=== PATIENT | male | born 1980 | race Caucasian/White ===

== ENCOUNTER 2022-04-30 20:00 | Outpatient (CLI) | payer OTHER, SELFPAY | END 2022-04-30 20:01 | disposition home or self-care (01) | LOC: SLEEP 05-01 06:45 | PROVIDERS: Visit Provider Nurse Practitioner | DX: R06.83 Snoring (principal); R53.83 Other fatigue; R41.3 Other amnesia; G47.33 Obstructive sleep apnea (adult) (pediatric) | CPT/HCPCS: 95810 ==

== ENCOUNTER 2022-11-01 06:12 | Outpatient (CLI) | payer OTHER, SELFPAY ==
--- NOTE | 2022-11-01 06:33 | CTR_ITS ---
PROCEDURE INFORMATION: Exam: CT Chest With Contrast; Diagnostic Exam date and time: 11/01/2022 6:52 AM Age: 42 years old Clinical indication: Abnormal findings; Abnormal radiologic exam of lung or chest; Additional info: Right upper lobe scarring TECHNIQUE: Imaging protocol: Diagnostic computed tomography of the chest with contrast. Radiation optimization: All CT scans at this facility use at least one of these dose optimization techniques: automated exposure control; mA and/or kV adjustment per patient size (includes targeted exams where dose is matched to clinical indication); or iterative reconstruction. Contrast material: OMNI 350; Contrast volume: 100 ml; Contrast route: INTRAVENOUS (IV); REPORTING DATA: Count of CT and Cardiac NM exams in prior 12 months: This patient has received 0 known CTs and 0 known cardiac nuclear medicine studies in the 12 months prior to the current study. COMPARISON: No relevant prior studies available. RADIATION DOSE METRICS: Total DLP (mGy-cm): 407.64 FINDINGS: Lungs: Right middle lobe 6.2 mm pulmonary nodule, series 4, image 33. Pleural spaces: Unremarkable. No pneumothorax. No pleural effusion. Heart: Unremarkable. No cardiomegaly. No pericardial effusion. Lymph nodes: Unremarkable. No enlarged lymph nodes. Vasculature: Unremarkable. No aortic aneurysm. Liver: Hepatic steatosis. Hepatic steatosis. Spleen: Spleen enlarged 13.5 cm. Bones/joints: Unremarkable. No acute fracture. Soft tissues: Unremarkable. CT/CT chest w con* [id number] IMPRESSION: 1. Negative for infiltrate. 2. Hepatic steatosis. 3. Right middle lobe 6.2 mm pulmonary nodule, series 4, image 33. For patients at low risk (minimal or absent history of smoking and of other known risk factors), recommend CT Chest at 6-12 months, then consider CT Chest at 18-24 months. For patients at high risk (history of smoking or of other known risk factors), recommend CT Chest at 6-12 months, then CT Chest at 18-24 months. (Reference: Marly) 4. Hepatic steatosis. 5. Spleen enlarged 13.5 cm. REFERENCES: Marly Benz et al. Guidelines for Management of Incidental Pulmonary Nodules Detected on CT Images: From the Fleischner Society 2017. Radiology. 2017;284(1):228-243.
[2022-11-01] MEDS: iohexol 350 mg/mL 500 mL Btl (per mL) IV (07:09)
== END 2022-11-01 06:13 | disposition home or self-care (01) ==
LOC: RAD 06:13
PROVIDERS: PCP Nurse Practitioner; Visit Provider Nurse Practitioner
DX: R91.8 Other nonspecific abnormal finding of lung field (principal); K76.0 Fatty (change of) liver, not elsewhere classified; R16.1 Splenomegaly, not elsewhere classified
CPT/HCPCS: 71260; Q9967

== ENCOUNTER → 2023-02-18 11:02 | Outpatient (BNVA) | payer OTHER, SELFPAY | PROVIDERS: PCP Nurse Practitioner; Visit Provider Internal Medicine Pulmonary Disease | DX: R06.09 Other forms of dyspnea; G47.33 Obstructive sleep apnea (adult) (pediatric); R91.1 Solitary pulmonary nodule; Z87.891 Personal history of nicotine dependence; E66.3 Overweight; Z68.36 Body mass index [BMI] 36.0-36.9, adult | CPT/HCPCS: 36415; 82785; 85025; 86003; 99204 ==

== ENCOUNTER 2023-06-06 11:40 | Outpatient (CLI) | payer OTHER, SELFPAY ==
--- NOTE | 2023-06-06 11:44 | CTR_ITS ---
PROCEDURE INFORMATION: Exam: CT Chest With Contrast; Diagnostic Exam date and time: 06/06/2023 11:53 AM Age: 43 years old Clinical indication: Abnormal findings; Abnormal radiologic exam of lung or chest; Additional info: [address] scan/pulmonary nodule TECHNIQUE: Imaging protocol: Diagnostic computed tomography of the chest with contrast. Radiation optimization: All CT scans at this facility use at least one of these dose optimization techniques: automated exposure control; mA and/or kV adjustment per patient size (includes targeted exams where dose is matched to clinical indication); or iterative reconstruction. Contrast material: OMNI 350; Contrast volume: 100 ml; Contrast route: INTRAVENOUS (IV); REPORTING DATA: Count of CT and Cardiac NM exams in prior 12 months: This patient has received [address] and 0 known cardiac nuclear medicine studies in the 12 months prior to the current study. COMPARISON: CT chest w con* [id number] 11/01/2022 6:52 AM RADIATION DOSE METRICS: Total DLP (mGy-cm): 545.32 FINDINGS: Lungs: The 5 mm smoothly marginated subpleural nodule in the right middle lobe (4-36) is unchanged. Pleural spaces: Unremarkable. No pneumothorax. No pleural effusion. Heart: Unremarkable. No cardiomegaly. No pericardial effusion. Lymph nodes: Unremarkable. No enlarged lymph nodes. Vasculature: Unremarkable. No aortic aneurysm. Liver: Mild hepatic steatosis. Bones/joints: Unremarkable. No acute fracture. Soft tissues: Unremarkable. CT/CT chest w con* [id number] IMPRESSION: 1. No acute cardiopulmonary disease. 2. Stable benign-appearing nodule.
[2023-06-06] MEDS: iohexol 350 mg/mL 500 mL Btl (per mL) IV (11:48)
== END 2023-06-06 11:41 | disposition home or self-care (01) ==
LOC: RAD 11:40
PROVIDERS: PCP Nurse Practitioner; Visit Provider Nurse Practitioner
DX: R91.1 Solitary pulmonary nodule (principal)
CPT/HCPCS: 71260; Q9967

== ENCOUNTER → 2023-07-03 13:43 | Outpatient (BNVA) | payer OTHER, SELFPAY | PROVIDERS: PCP Nurse Practitioner; Visit Provider Internal Medicine Pulmonary Disease | DX: J45.40 Moderate persistent asthma, uncomplicated (principal); R06.02 Shortness of breath; G47.33 Obstructive sleep apnea (adult) (pediatric); R91.1 Solitary pulmonary nodule; Z87.891 Personal history of nicotine dependence | CPT/HCPCS: 99214 ==

== ENCOUNTER 2023-07-24 09:10 | Outpatient (CLI) | payer OTHER, SELFPAY | END 2023-07-24 09:11 | disposition home or self-care (01) | LOC: RT 09:11 | PROVIDERS: PCP Nurse Practitioner; Visit Provider Internal Medicine Pulmonary Disease | DX: R06.02 Shortness of breath (principal) | CPT/HCPCS: 94010; 94729 ==

== ENCOUNTER → 2023-08-01 12:50 | Outpatient (BNVA) | payer OTHER, SELFPAY | PROVIDERS: PCP Nurse Practitioner; Visit Provider Dermatology | DX: B07.8 Other viral warts (principal); L57.0 Actinic keratosis; L82.1 Other seborrheic keratosis; D22.5 Melanocytic nevi of trunk; L91.8 Other hypertrophic disorders of the skin | CPT/HCPCS: 17000; 17110; 99203 ==

== ENCOUNTER → 2023-08-22 15:21 | Outpatient (BNVA) | payer OTHER, SELFPAY | PROVIDERS: PCP Nurse Practitioner; Visit Provider Nurse Practitioner Family | DX: B07.8 Other viral warts (principal); L57.0 Actinic keratosis; L82.1 Other seborrheic keratosis; D22.62 Melanocytic nevi of left upper limb, including shoulder; L91.8 Other hypertrophic disorders of the skin | CPT/HCPCS: 17000; 17110; 99213 ==

== ENCOUNTER → 2023-09-17 13:05 | Outpatient (BNVA) | payer OTHER, SELFPAY | PROVIDERS: PCP Nurse Practitioner; Visit Provider Nurse Practitioner Family | DX: B07.8 Other viral warts (principal); L57.8 Other skin changes due to chronic exposure to nonionizing radiation; L81.4 Other melanin hyperpigmentation; L57.0 Actinic keratosis | CPT/HCPCS: 17000; 17110; 99213 ==

== ENCOUNTER → 2023-10-08 14:42 | Outpatient (BNVA) | payer OTHER, SELFPAY | PROVIDERS: PCP Nurse Practitioner; Visit Provider Nurse Practitioner Family | DX: B07.8 Other viral warts (principal); L57.8 Other skin changes due to chronic exposure to nonionizing radiation; L81.4 Other melanin hyperpigmentation | CPT/HCPCS: 17110; 99213 ==

== ENCOUNTER 2023-10-23 06:00 | Outpatient (RCR) | payer OTHER, SELFPAY | END 2023-11-19 23:59 | disposition home or self-care (01) | LOC: TPT 06:00 | PROVIDERS: Visit Provider Nurse Practitioner | DX: M51.06 Intervertebral disc disorders with myelopathy, lumbar region (principal) | CPT/HCPCS: 97110; 97161 ==

== ENCOUNTER → 2023-10-30 15:20 | Outpatient (BNVA) | payer OTHER, SELFPAY | PROVIDERS: Visit Provider Nurse Practitioner Family | DX: B07.8 Other viral warts (principal) | CPT/HCPCS: 17110; 99213 ==

== ENCOUNTER → 2023-11-04 14:04 | Outpatient (BNVA) | payer OTHER, SELFPAY | PROVIDERS: Visit Provider Internal Medicine Pulmonary Disease | DX: J45.40 Moderate persistent asthma, uncomplicated (principal); G47.33 Obstructive sleep apnea (adult) (pediatric); R91.1 Solitary pulmonary nodule; Z87.891 Personal history of nicotine dependence | CPT/HCPCS: 99214 ==

== ENCOUNTER 2023-11-20 06:00 | Outpatient (RCR) | payer OTHER, SELFPAY | END 2023-12-13 23:59 | disposition home or self-care (01) | LOC: TPT 06:00 | PROVIDERS: Visit Provider Nurse Practitioner | DX: M51.06 Intervertebral disc disorders with myelopathy, lumbar region (principal); B07.8 Other viral warts; L57.8 Other skin changes due to chronic exposure to nonionizing radiation; L81.4 Other melanin hyperpigmentation | CPT/HCPCS: 17110; 97110; 99213 ==

== ENCOUNTER 2024-07-16 16:42 | Outpatient (CLI) | payer OTHER, SELFPAY ==
--- NOTE | 2024-07-16 16:47 | CT_ITS ---
WS: [id number] CT chest w con* [id number] HISTORY: FOLLOW UP RIGHT MIDDLE LUNG NODULE TECHNIQUE: Axial imaging performed through the thorax. Coronal and sagittal reformats are submitted. All CT scans at [facility] use at least one of these dose optimization techniques: automated exposure control; mA and/or kV adjustment per patient size (includes targeted exams where dose is mat ched to clinical indication); or iterative reconstruction. CONTRAST: Omnipaque 350; 100 mL IV. DLP: 595.34 mGy.cm COMPARISON: 06/06/2023, 11/01/2022 Lungs and central airway: Lungs are well-aerated. There are 3 very tiny nodules associated with the R IGHT short fissure and RIGHT middle lobe. The largest is 5 mm. These have been present on prior studi es with no change. No enlarging mass. No pneumonia. Pleura: Normal. No pleural effusion. Heart and pericardium: Normal size heart with no pericardial effusion. Mediastinum and deena: No mediastinum or hilar adenopathy. Vessels: There is mild enlargement of the pulmonary artery. Normal size aorta. Chest wall and lower neck: No soft tissue masses. Upper abdomen: Normal adrenal glands. Negative liver. Marked distention of the stomach with food prod ucts. Osseous structures: Numerous Schmorl's nodes in the thoracic spine. No destructive bone lesions. CT/CT chest w con* [id number] IMPRESSION: 1. Right-sided pulmonary nodules are unchanged. 3 nodules are identified. Some of these are perifissural nodules. Largest is 5 mm. No change since 11/01/2022. No additional follow-up necessary. 2. No mediastinal or hilar adenopathy. 3. Mildly prominent pulmonary artery.
[2024-07-16] MEDS: iohexol 350 mg/mL 500 mL Btl (per mL) IV (17:02)
== END 2024-07-16 16:43 | disposition home or self-care (01) ==
PROVIDERS: PCP Nurse Practitioner; Visit Provider Nurse Practitioner
DX: R91.8 Other nonspecific abnormal finding of lung field (principal); M51.44 Schmorl's nodes, thoracic region
CPT/HCPCS: 71260